=== PATIENT | female | born 1935 | race Caucasian/White ===

== ENCOUNTER 2017-05-02 08:36 | Outpatient (CLI) | payer MEDICARE ==
--- NOTE | 2017-05-02 20:01 | HP ---
DATE OF SERVICE: 05/02/2017 HISTORY OF PRESENT ILLNESS: Ms. Elida Gomez is a very pleasant 82-year-old accompanied by her daughter, who presents to the Wound Center for evaluation of a wound of the right lower leg subsequen t to a fall on 04/14/2017. The patient's daughter states that Ms. Gomez was seen in the Emergency Department the following day and at this time the laceration of the right lower leg was cleaned in [facility] edges approximated with Steri-Strips. Approximately 2 weeks later, the patient was seen in the [facility] Department again and at this time placed on a course of clindamycin p.o. for 10 days. At the time of the patient's visit to the Emergency Department on 04/27/2017, the patient was referred to [facility] for further evaluation and treatment. The patient's daughter has been dressing the wo und of the right lower leg wound with Telfa and gauze secured with tape every other day. The patient 's daughter states that she herself discontinued the Steri-Strips, which had been utilized to approxi mate the wound edges at the time of the patient's initial visit to the Emergency Department on 2016. PAST MEDICAL HISTORY: 1. History of hypertension. 2. Degenerative joint disease. 3. History of gastroesophageal reflux disease. PAST SURGICAL HISTORY: 1. Appendectomy. 2. Hysterectomy. 3. Tonsillectomy. 4. Abdominoplasty. 5. Removal of benign ovarian tumors. MEDICATIONS: 1. Metoprolol. 2. Trazodone. 3. Famotidine. 4. Simvastatin. 5. Amlodipine. 6. Losartan. 7. Aspirin 325 mg. 8. Aleve. 9. Vitamin D3. 10. Azo-Cranberry. ALLERGIES: PENICILLIN. SOCIAL HISTORY: Negative for tobacco use. The patient admits to only the rare consumption of alcoho l. FAMILY HISTORY: Significant for diabetes mellitus. The patient states that she has one daughter, wh o was diagnosed with diabetes mellitus. PHYSICAL EXAMINATION: VITAL SIGNS: Temperature 97.6, pulse 71, respirations 18, blood pressure 146/83. GENERAL: An 82-year-old female lying on table in examination room in no acute distress. HEENT: Normocephalic, atraumatic. NECK: No nuchal rigidity. CHEST: Clear to auscultation. CARDIAC: Regular rate and rhythm. ABDOMEN: Soft. EXTREMITIES: A wound of the right lower leg is present, which measures approximately 6.0 x 3.0 cm. Granulation tissue is present within the wound margins. Necrotic and nonviable tissue present within the wound margins was debrided with an excisional full-thickness debridement with the use of a curet te. No purulent drainage is associated with the wound. Erythema of the right lower leg is present. No maceration of the skin of the periwound is noted. A dorsalis pedis pulse is palpable on the righ t. Edema of the right foot and lower leg is present on exam today. NEUROLOGIC: Grossly nonfocal. ASSESSMENT AND PLAN: 1. Laceration of right lower leg as described above. Healing of the wound appears to be complicated by venous hypertension. Silverlon, Webril, and the 3M Coban two-layer compression system will be ap plied to the right lower leg wound today. The patient has been reminded to continue clindamycin as p reviously prescribed. I will see Ms. Gomez again in 1 week. 2. History of hypertension. 3. Degenerative joint disease. 4. History of gastroesophageal reflux disease.
[2017-05-02] MEDS ORDERED: Sodium Chloride 0.9% 15 ML NEB ONE (21:14)
[2017-05-02] MEDS ORDERED: Lidocaine 2% Jelly 5 ML TUBE ONE (21:14)
== END 2017-05-02 08:37 | disposition home or self-care (01) ==
LOC: WCC 08:36
PROVIDERS: ATTEND Family Medicine
DX: S81.811D Laceration without foreign body, right lower leg, subsequent encounter (principal); I10 Essential (primary) hypertension; M19.90 Unspecified osteoarthritis, unspecified site; K21.9 Gastro-esophageal reflux disease without esophagitis
CPT/HCPCS: 11042; 97139; G0463; 99204; A4218

== ENCOUNTER 2017-05-09 07:59 | Outpatient (CLI) | payer MEDICARE ==
--- NOTE | 2017-05-09 09:18 | PRG ---
DATE OF SERVICE: 05/09/2017 HISTORY: Ms. Elida Gomez is a very pleasant 82-year-old accompanied by her daughter, who prese nts to the Wound Center for evaluation of a wound of the right lower leg subsequent to a fall on 03/21. The patient's daughter previously stated that Ms. Gomez was seen in the Emergency Departme nt the following day and at this time the laceration of the right lower leg was cleaned in the edges approximated with Steri-Strips. Approximately 2 weeks later, [facility] and at this time placed on a course of p.o. clindamycin for 10 days. At the time of the patient's visit to the Emergency Department on 04/27/2017, the patient was referred to the Wound Center for further evaluation and treatment. Prior to being seen in the Wound Center, the patient's daughter had been dressing the wound of the right lower leg, which Telfa and gauze secured with tape every other day. The patient's daughter stated that she herself discontinued the Steri-Strips, which had been utilized to approximate the wound edges. At the time of the patient's initial visit to the Emergency Department on 04/15/2017, after being seen in the Wound Center, Silverlon, Webril, and 3M Coban 2 layer compression system were applied to the right lower leg wound. PHYSICAL EXAMINATION: VITAL SIGNS: Temperature 97.6, pulse 75, respirations 16, blood pressure 143/70. EXTREMITIES: A wound of the right lower leg is present, which measures approximately 5.5 x 3.0 cm. The dimensions of the wound at the time of the patient's last visit were approximately 6.0 x 3.0 cm. Granulation tissue is present within the wound margins. Necrotic and nonviable tissue present withi n the wound margins was debrided with an excisional full-thickness debridement with the use of a cure tte and scissors. No purulent drainage is associated with the wound. No cellulitis of the right low er leg is present. No maceration of the skin of the periwound is noted. A dorsalis pedis pulse is e asily palpable on the right. Less edema of the right foot and lower leg is present on exam today, th en was present at the time of the patient's last visit. ASSESSMENT AND PLAN: 1. Laceration of right lower leg as described above. The healing of the wound appears to be complic ated by venous hypertension. Silverlon, Webril, and the 3M Coban two-layer compression system will b e applied to the right lower leg wound again today. The patient is to receive weekly dressing change s of Silverlon, Webril, and 3M Coban 2 layer compression system here in the Wound Center for the next 2 weeks. I will see Ms. Gomez again in 3 weeks. 2. History of hypertension. 3. Degenerative joint disease. 4. History of gastroesophageal reflux disease.
[2017-05-09] MEDS ORDERED: Lidocaine 2% Jelly 5 ML TUBE ONE (21:26)
[2017-05-09] MEDS ORDERED: Sodium Chloride 0.9% 15 ML NEB ONE (21:26)
== END 2017-05-09 08:00 | disposition home or self-care (01) ==
LOC: WCC 07:59
PROVIDERS: ATTEND Family Medicine
DX: S81.801D Unspecified open wound, right lower leg, subsequent encounter (principal); M19.90 Unspecified osteoarthritis, unspecified site; Z82.49 Family history of ischemic heart disease and other diseases of the circulatory system; Z87.19 Personal history of other diseases of the digestive system
CPT/HCPCS: 36415; 80061; A4218

== ENCOUNTER 2017-05-16 09:09 | Outpatient (CLI) | payer MEDICARE ==
[2017-05-16] MEDS ORDERED: Sodium Chloride 0.9% 15 ML NEB ONE (13:37)
== END 2017-05-16 09:10 | disposition home or self-care (01) ==
LOC: WCC 09:09
PROVIDERS: ATTEND Family Medicine
DX: S81.811D Laceration without foreign body, right lower leg, subsequent encounter (principal); I87.391 Chronic venous hypertension (idiopathic) with other complications of right lower extremity
CPT/HCPCS: 29581; A4218

== ENCOUNTER 2017-05-23 07:36 | Outpatient (CLI) | payer MEDICARE ==
[2017-05-23] MEDS ORDERED: Sodium Chloride 0.9% 15 ML NEB ONE (09:00)
== END 2017-05-23 07:37 | disposition home or self-care (01) ==
LOC: WCC 07:36
PROVIDERS: ATTEND Family Medicine
DX: I87.311 Chronic venous hypertension (idiopathic) with ulcer of right lower extremity (principal); L97.919 Non-pressure chronic ulcer of unspecified part of right lower leg with unspecified severity
CPT/HCPCS: 29581; A4218

== ENCOUNTER → 2017-05-30 | Outpatient (CLI) | payer MEDICARE ==
[~2017-05-30] MED LIST: Lidocaine 2% Jelly 5 ML TUBE ONE
--- NOTE | 2017-05-30 09:58 | PRG ---
DATE OF SERVICE: 05/30/2017 HISTORY: Ms. Elida Gomez is a very pleasant 82-year-old, who presents to the Wound Center for e valuation of a wound of the right lower leg subsequent to a fall on 04/14/2017. The patient's daught er previously stated that Ms. Gomez was seen in the Emergency Department the following day and at t his time the laceration of the right lower leg was cleaned and the edges approximated with Steri-Stri ps. Approximately 2 weeks later, the patient was seen in the Emergency Department again and at this time placed on a course of p.o. clindamycin for 10 days. At the time of the patient's visit to the E mergency Department on 04/27/2017, the patient was referred to the Wound Center for further evaluatio n and treatment. Prior to being seen in the Wound Center, the patient's daughter had been dressing t he wound of the right lower leg with Telfa and gauze secured with tape every other day. The patient' s daughter stated that she herself discontinued the Steri-Strips, which had been utilized to approxim ate the wound edges at the time of the patient's initial visit to the Emergency Department on 017. After being seen in the Wound Center, Silverlon, Webril, and 3M Coban 2 layer compression syste m were applied to the right lower leg wound. PHYSICAL EXAMINATION: VITAL SIGNS: Temperature 98.1, pulse 61, respirations 16, and blood pressure 148/63. EXTREMITIES: A wound of the right lower leg is present, which measures approximately 5.2 x 2.0 cm. The dimensions of the wound at the time of the patient's visit on 05/09/2017 were approximately 5.5 x 3.0 cm. Granulation tissue is present within the wound margins. Necrotic and nonviable tissue pres ent within the wound margins was debrided with an excisional full-thickness debridement with the use of a curet and scissors. No purulent drainage is associated with the wound. No cellulitis of the ri ght lower leg is present. No maceration of the skin of the periwound is noted. A dorsalis pedis pul se is easily palpable on the right. No significant edema of the right foot or lower leg is present o n exam today. ASSESSMENT AND PLAN: 1. Laceration of right lower leg as described above. The healing of the wound appears to be complic ated by venous hypertension. Silverlon, Webril, and the 3M Coban two-layer compression system will b e applied to the right lower leg wound again today. I will see Ms. Gomez again in 1 week. 2. History of hypertension. 3. Degenerative joint disease. 4. History of gastroesophageal reflux disease.
== END ==
LOC: WCC 07:33
PROVIDERS: ATTEND Family Medicine
DX: S81.811D Laceration without foreign body, right lower leg, subsequent encounter (principal); I87.391 Chronic venous hypertension (idiopathic) with other complications of right lower extremity; I10 Essential (primary) hypertension; M19.90 Unspecified osteoarthritis, unspecified site; Z87.19 Personal history of other diseases of the digestive system
CPT/HCPCS: 11042

== ENCOUNTER 2017-06-06 09:42 | Outpatient (CLI) | payer MEDICARE ==
--- NOTE | 2017-06-06 12:33 | PRG ---
DATE OF SERVICE: 06/06/2017 HISTORY: Ms. Elida Gomez is a very pleasant 82-year-old, who presents to the Wound Center for e valuation of a wound of the right lower leg subsequent to a fall on 04/14/2017. The patient's daught er previously stated that Ms. Gomez was seen in the Emergency Department the following day, and at this time, the laceration of the right lower leg was cleaned and the edges approximated with Steri-St rips. Approximately 2 weeks later, the patient was seen in the Emergency Department again, and at th is time placed on a course of p.o. clindamycin for 10 days. At the time of the patient's visit to [facility] Emergency Department on 04/27/2017, the patient was referred to the Wound Center for further evalua tion and treatment. Prior to being seen in the Wound Center, the patient's daughter had been dressin g the wound of the right lower leg with Telfa and gauze secured with tape every other day. The patie nt's daughter stated that she herself discontinued the Steri-Strips, which had been utilized to appro ximate the wound edges at the time of the patient's initial visit to the Emergency Department on 03/21. After being seen in the Wound Center, Silverlon, Webril, and the 3M Coban 2-layer compressio n system were applied to the right lower leg wound. The patient has been receiving these dressing ch anges on a weekly basis. PHYSICAL EXAMINATION: VITAL SIGNS: Temperature 97.5, pulse 64, respirations 20, blood pressure 196/82. EXTREMITIES: A wound of the right lower leg is present, which measures approximately 2.3 x 2.3 cm. The dimensions of the wound at the time of the patient's visit on 05/30/2017 were approximately 5.2 x 2.0 cm. Granulation tissue is present within the wound margins. Necrotic and nonviable tissue pres ent within the wound margins was debrided with an excisional full-thickness debridement with the use of a curette and scissors. No purulent drainage is associated with the wound. No cellulitis of the right lower leg is present. No maceration of the skin of the periwound is noted. A dorsalis pedis p ulse is easily palpable on the right. No significant edema of the right foot or lower leg is present on exam today. ASSESSMENT AND PLAN: 1. Laceration of right lower leg as described above. The healing of the wound appears to be complic ated by chronic venous hypertension. Silverlon, Webril, and the 3M Coban 2-layer compression system will be applied to the right lower leg wound again today. I will see Ms. Gomez again in 1 week. 2. History of hypertension. 3. Degenerative joint disease. 4. History of gastroesophageal reflux disease.
== END 2017-06-06 09:43 | disposition home or self-care (01) ==
LOC: WCC 09:42
PROVIDERS: ATTEND Family Medicine
DX: S81.811D Laceration without foreign body, right lower leg, subsequent encounter (principal); M19.90 Unspecified osteoarthritis, unspecified site; I10 Essential (primary) hypertension; K21.9 Gastro-esophageal reflux disease without esophagitis

== ENCOUNTER 2017-06-13 10:35 | Outpatient (CLI) | payer MEDICARE ==
--- NOTE | 2017-06-13 13:17 | PRG ---
DATE OF SERVICE: 06/13/2017 HISTORY: Ms. Elida Gomez is a very pleasant 82-year-old, who presents to the Wound Center for e valuation of a wound of the right lower leg subsequent to a fall on 04/14/2017. The patient's daught er previously stated that Ms. Gomez was seen in the Emergency Department the following day, and at this time, the laceration of the right lower leg was cleaned and the edges approximated with Steri-St rips. Approximately 2 weeks later, the patient was seen in the Emergency Department again, and at th is time, placed on a course of p.o. clindamycin for 10 days. At the time of the patient's visit to [facility] Emergency Department on 04/27/2017, the patient was referred to the Wound Center for further evalu ation and treatment. Prior to being seen in the Wound Center, the patient's daughter had been dressi ng the wound of the right lower leg with Telfa and gauze secured with tape every other day. The shamar ent's daughter stated that she herself discontinued the Steri-Strips, which had been utilized to appr oximate the wound edges at the time of the patient's initial visit to the Emergency Department on . After being seen in the Wound Center, Silverlon, Webril, and the 3M Coban 2-layer compressi on system were applied to the right lower leg wound. The patient has been receiving these dressing c hanges on a weekly basis. PHYSICAL EXAMINATION: VITAL SIGNS: Temperature 97.7, pulse 63, respirations 19, blood pressure 142/65. EXTREMITIES: A wound of the right lower leg is present, which measures approximately 1.5 x 0.5 cm. The dimensions of the wound, at the time of the patient's visit on 06/06/2017, were approximately 2.3 x 2.3 cm. Granulation tissue is present within the wound margins. Necrotic and nonviable tissue pr esent within the wound margins was debrided with an excisional full-thickness debridement with the us e of a curette and scissors. No purulent drainage is associated with the wound. No cellulitis of th e right lower leg is present. No maceration of the skin of the periwound is noted. No significant e ailyn of the right foot or lower leg is present on exam today. ASSESSMENT AND PLAN: 1. Laceration of right lower leg as described above. The healing of the wound appears to be complic ated by chronic venous hypertension. Silverlon, Webril, and the 3M Coban 2-layer compression system will be applied to the right lower leg wound again today. I will see Ms. Gomez again in 1 week. 2. History of hypertension. 3. Degenerative joint disease. 4. History of gastroesophageal reflux disease.
[2017-06-14] MEDS ORDERED: Sodium Chloride 0.9% 15 ML NEB ONE (15:44)
[2017-06-14] MEDS ORDERED: Lidocaine 2% Jelly 5 ML TUBE ONE (15:44)
== END 2017-06-13 10:36 | disposition home or self-care (01) ==
LOC: WCC 10:35
PROVIDERS: ATTEND Family Medicine
DX: S81.811D Laceration without foreign body, right lower leg, subsequent encounter (principal); I87.301 Chronic venous hypertension (idiopathic) without complications of right lower extremity; M19.90 Unspecified osteoarthritis, unspecified site; Z87.19 Personal history of other diseases of the digestive system
CPT/HCPCS: 11042

== ENCOUNTER 2017-06-20 09:48 | Outpatient (CLI) | payer MEDICARE ==
--- NOTE | 2017-06-20 11:45 | PRG ---
DATE OF SERVICE: 06/20/2017 HISTORY: Ms. Elida Gomez is a very pleasant 82-year-old who presents to the Wound Center for evaluation of a wound of the right lower leg subsequent to a fall on 04/14/2017. The patient's daughter previously stated that Ms. Gomez was seen in the Emergency Department the following day, and at this time , the laceration of the right lower leg was cleaned and the edges approximated with Steri-Strips. Approximately 2 weeks later, the patient was seen in the Emergency Department again and, at this time, placed on a course of p.o. clindamycin for 10 days. At the time of the patient's visit to the Emergency Department on 04/27/2017, the patient was referred to the Wound Center for further evaluation and treatment. Prior to being seen in the Wound Center, the patient's daughter had been dressing the wound of the right lower leg with Telfa and gauze secured with tape every other day. The patient's daughter stated that she herself discontinued the Steri-Strips, which had been utilized to approximate the wound edges at the time of the patient's initial visit to the Emergency Department on 04/15/2017. After being seen in the Wound Center, Silverlon, Webril, and the 3M Coban 2-layer compression system were applied to the right lower leg wound. The patient has been receiving these dressing changes on a weekly basis. PHYSICAL EXAMINATION: VITAL SIGNS: Temperature 97.5, pulse 57, respirations 19, blood pressure 165/ 70. EXTREMITIES: A wound of the right lower leg is present which measures approximately 1.2 x 0.9 cm. The dimensions of the wound at the time of the patient's visit on 06/13/2017 were approximately 1.5 x 0.5 cm. Granulation tissue is present within the wound margins. Necrotic and nonviable tissue present within the wound margins was debrided with an excisional full-thickness debridement with the use of a curet. No purulent drainage is associated with the wound. No cellulitis of the right lower leg is present. No maceration of the skin of the periwound is noted. A dorsalis pedis pulse is easily palpable on the right. No significant edema of the right foot or lower leg is present on exam today. ASSESSMENT AND PLAN: 1. Laceration of right lower leg as described above. The healing of the wound appears to be complicated by chronic venous hypertension. Silverlon, Webril, and the 3M Coban two-layer compression system will be applied to the right lower leg wound today. The wound has almost healed completely, and Ms. Gomez will be discharged from clinic today with follow up on a p.r.n. basis. The patient has been asked to discontinue her compression wrap in 1 week to 10 days. At this time, the patient is to perform dressing changes of Silverlon on a daily basis or alternatively three times per week after cleansing and irrigation until the wound has healed completely. The patient understands and is in agreement with the preceding treatment plan. 2. History of hypertension. 3. Degenerative joint disease. 4. History of gastroesophageal reflux disease. MTDD
[2017-06-24] MEDS ORDERED: Sodium Chloride 0.9% 15 ML NEB ONE (15:17)
[2017-06-24] MEDS ORDERED: Lidocaine 2% Jelly 5 ML TUBE ONE (15:17)
== END 2017-06-20 09:49 | disposition home or self-care (01) ==
LOC: WCC 09:48
PROVIDERS: ATTEND Family Medicine
DX: S81.811D Laceration without foreign body, right lower leg, subsequent encounter (principal); I10 Essential (primary) hypertension; M19.90 Unspecified osteoarthritis, unspecified site; K21.9 Gastro-esophageal reflux disease without esophagitis
CPT/HCPCS: 11042

== ENCOUNTER 2021-01-22 17:04 | Inpatient (IN) | payer MEDICARE ==
[2021-01-23 00:17] VITALS: BMI 26.4
[2021-01-23] MEDS ORDERED: Senokot S 8.6-50 MG TAB PO PRN (00:18)
[2021-01-23] MEDS ORDERED: Ondansetron PF 4 MG/2 ML Vial IVP PRN (00:18)
[2021-01-23] MEDS ORDERED: Bisacodyl 5 MG TAB PO PRN (00:18)
[2021-01-23] MEDS ORDERED: hydrALAZINE 20 MG/ML VIAL SLOW IVP PRN (00:29)
[2021-01-23] MEDS ORDERED: Docusate 100 MG CAP PO SCH (00:53)
[2021-01-23] MEDS ORDERED: cefTRIAXone\\ROCEPHIN 1 GM in Sodium Chloride 0.9% 100 ML IVPB SCH (01:00)
[2021-01-23] MEDS: Sodium Chloride 0.9% 1,000 ML IV SCH (01:02)
[2021-01-23 04:28] LABS: #Eosinphils 0.1 thou/uL (0.0-0.7); #Lymphocytes 0.9 thou/uL (1.20-3.40); #Monocytes 0.4 thou/uL (0.11-0.59); #Neutrophils 3.3 thou/uL (1.40-6.50); %Basophils 0.2 % (0.0-1.0); %Eosinophils 1.7 % (0.0-10.0); %Lymphocytes 18.4 % (21.0-51.0); %Monocytes 9.4 % (0.0-10.0); %Neutrophils 70.3 % (42.0-75.0); Mean Corpuscular HGB CONC 33.6 g/dL (32.0-36.0); Mean Corpuscular Hemoglobin 32.3 pg (27.0-31.0); Mean Corpuscular Volume 96.2 fL (78.0-98.0); Mean Platelet Volume 7.9 fL (7.4-10.4); Platelet Count 130 thou/uL (130-400); RBC Distribution Width 12.2 % (11.5-14.5); Red Blood Cell (RBC) Count 3.71 mill/uL (4.20-5.40); White Blood Cell (WBC) Count 4.7 thou/uL (4.8-10.8)
[2021-01-23 04:49] LABS: ALT (SGPT) 11 U/L (8-55); AST (SGOT) 14 U/L (5-34); Alkaline Phosphatase 60 U/L (40-110); Anion Gap 13 mmol/L (10-20); BUN (Urea Nitrogen) 20 mg/dL (9.8-20.1); Bilirubin, Total 0.6 mg/dL (0.2-1.2); Calc. Creatinine Clearance 44 mL/min (70-130); Calcium 9.9 mg/dL (7.8-10.44); Carbon Dioxide 24 mmol/L (23-31); Chloride 109 mmol/L (98-107); Globulin 2.2 g/dL (2.4-3.5); Glucose 100 mg/dL (83-110); Potassium 4.2 mmol/L (3.5-5.1); Protein, Total 6.2 g/dL (5.8-8.1); Sodium 142 mmol/L (136-145)
[2021-01-23 04:53] LABS: Troponin I 0.027 ng/mL (< 0.028)
[2021-01-23] MEDS: Simvastatin 10 MG TAB PO SCH (08:16)
[2021-01-23] MEDS: Losartan 25 MG TAB PO SCH (08:16)
[2021-01-23] MEDS: Docusate 100 MG CAP PO SCH ×2 (08:16→19:59)
[2021-01-23] MEDS: Metoprolol Tartrate 25 MG TAB PO SCH ×2 (08:16→20:00)
[2021-01-23] MEDS: Loratadine 10 MG TAB PO SCH (08:16)
[2021-01-23 08:39] LABS: Hemoglobin A1c 4.9 % (4.0-6.0)
[2021-01-23] MEDS: cefTRIAXone\\ROCEPHIN 1 GM in Sodium Chloride 0.9% 100 ML IVPB SCH (16:59)
[2021-01-23] MEDS: Aspirin 325 mg Enteric Coated Tablet PO SCH (19:59)
[2021-01-23] MEDS: traZODone HCl 150 MG TAB PO SCH (19:59)
[2021-01-24] MEDS: Sodium Chloride 0.9% 1,000 ML IV SCH (06:27)
[2021-01-24] MEDS: Acetaminophen 325 MG TAB PO PRN ×2 (08:14→15:10)
[2021-01-24] MEDS: Metoprolol Tartrate 25 MG TAB PO SCH ×2 (08:15→20:17)
[2021-01-24] MEDS: Loratadine 10 MG TAB PO SCH (08:15)
[2021-01-24] MEDS: Simvastatin 10 MG TAB PO SCH (08:15)
[2021-01-24] MEDS: Losartan 25 MG TAB PO SCH (08:15)
[2021-01-24] MEDS: Docusate 100 MG CAP PO SCH ×2 (08:15→20:17)
[2021-01-24] MEDS: cefTRIAXone\\ROCEPHIN 1 GM in Sodium Chloride 0.9% 100 ML IVPB SCH (16:09)
[2021-01-24] MEDS: Aspirin 325 mg Enteric Coated Tablet PO SCH (20:18)
[2021-01-24] MEDS: traZODone HCl 150 MG TAB PO SCH (20:18)
[2021-01-24] MEDS: Melatonin 3 MG TAB PO PRN (23:02)
[2021-01-25] MEDS: Sodium Chloride 0.9% 1,000 ML IV SCH (06:08)
[2021-01-25] MEDS: Losartan 25 MG TAB PO SCH (09:14)
[2021-01-25] MEDS: Loratadine 10 MG TAB PO SCH (09:14)
[2021-01-25] MEDS: Docusate 100 MG CAP PO SCH ×2 (09:15→21:58)
[2021-01-25] MEDS: Simvastatin 10 MG TAB PO SCH (09:15)
[2021-01-25] MEDS: Metoprolol Tartrate 25 MG TAB PO SCH ×2 (09:15→21:58)
[2021-01-25] MEDS ORDERED: traMADol HCl 50 MG TAB PO PRN (12:24)
[2021-01-25] MEDS ORDERED: Naproxen 500 MG TAB PO SCH (14:00)
[2021-01-25] MEDS: cefTRIAXone\\ROCEPHIN 1 GM in Sodium Chloride 0.9% 100 ML IVPB SCH (18:29)
[2021-01-25] MEDS: traZODone HCl 150 MG TAB PO SCH (21:58)
[2021-01-25] MEDS: Melatonin 3 MG TAB PO PRN (21:58)
[2021-01-25] MEDS: Naproxen 500 MG TAB PO SCH (21:58)
[2021-01-26 07:26] LABS: #Eosinphils 0.2 thou/uL (0.0-0.7); #Monocytes 0.6 thou/uL (0.11-0.59); #Neutrophils 4.1 thou/uL (1.40-6.50); %Eosinophils 3.4 % (0.0-10.0); %Lymphocytes 16.4 % (21.0-51.0); %Monocytes 9.6 % (0.0-10.0); %Neutrophils 70.6 % (42.0-75.0); Hemoglobin 12.3 g/dL (12.0-16.0); Mean Corpuscular HGB CONC 33.4 g/dL (32.0-36.0); Mean Corpuscular Hemoglobin 32.8 pg (27.0-31.0); Mean Corpuscular Volume 98.1 fL (78.0-98.0); Mean Platelet Volume 8.7 fL (7.4-10.4); Platelet Count 136 thou/uL (130-400); RBC Distribution Width 12.2 % (11.5-14.5); Red Blood Cell (RBC) Count 3.77 mill/uL (4.20-5.40); White Blood Cell (WBC) Count 5.8 thou/uL (4.8-10.8)
[2021-01-26 07:37] LABS: Anion Gap 11 mmol/L (10-20); BUN (Urea Nitrogen) 28 mg/dL (9.8-20.1); Calc. Creatinine Clearance 34 mL/min (70-130); Calcium 9.7 mg/dL (7.8-10.44); Carbon Dioxide 26 mmol/L (23-31); Chloride 106 mmol/L (98-107); Glucose 105 mg/dL (83-110); Potassium 3.9 mmol/L (3.5-5.1); Sodium 139 mmol/L (136-145)
[2021-01-26] MEDS: Sodium Chloride 0.9% 1,000 ML IV SCH ×2 (09:21→19:41)
[2021-01-26] MEDS: Aspirin 81 mg Enteric Coated Tablet PO SCH (09:41)
[2021-01-26] MEDS: Losartan 25 MG TAB PO SCH (09:42)
[2021-01-26] MEDS: Naproxen 500 MG TAB PO SCH ×2 (09:42→22:14)
[2021-01-26] MEDS: Metoprolol Tartrate 25 MG TAB PO SCH ×2 (09:42→22:14)
[2021-01-26] MEDS: Docusate 100 MG CAP PO SCH ×2 (09:43→22:14)
[2021-01-26] MEDS: Loratadine 10 MG TAB PO SCH (09:43)
[2021-01-26] MEDS ORDERED: Bisacodyl 10 MG SUPP PR SCH (17:15)
[2021-01-26] MEDS ORDERED: Simvastatin 10 MG TAB PO SCH (21:00)
[2021-01-26] MEDS: traZODone HCl 150 MG TAB PO SCH (22:13)
[2021-01-26] MEDS: Melatonin 3 MG TAB PO PRN (22:14)
[2021-01-27] MEDS: Aspirin 81 mg Enteric Coated Tablet PO SCH (09:38)
[2021-01-27] MEDS: Naproxen 500 MG TAB PO SCH (09:38)
[2021-01-27] MEDS: Losartan 25 MG TAB PO SCH (09:39)
[2021-01-27] MEDS: Metoprolol Tartrate 25 MG TAB PO SCH (09:41)
[2021-01-27] MEDS: Loratadine 10 MG TAB PO SCH (09:41)
[2021-01-27] MEDS: Docusate 100 MG CAP PO SCH (09:41)
[2021-01-27 14:59] VITALS: BP 129/84; TEMP 96
== END 2021-01-27 15:05 | DRG 689 ==
LOC: 2NO 17:04 → SURG A 01-24 16:48 → OBSVTOIN 01-26 15:19
PROVIDERS: ADMIT Family Medicine; ATTEND Internal Medicine
DX: N39.0 Urinary tract infection, site not specified (principal); G93.41 Metabolic encephalopathy; N17.9 Acute kidney failure, unspecified; I12.9 Hypertensive chronic kidney disease with stage 1 through stage 4 chronic kidney disease, or unspecified chronic kidney disease; E78.5 Hyperlipidemia, unspecified; G89.29 Other chronic pain; R73.9 Hyperglycemia, unspecified; K59.00 Constipation, unspecified; R07.89 Other chest pain; B96.20 Unspecified Escherichia coli [E. coli] as the cause of diseases classified elsewhere; N18.30 Chronic kidney disease, stage 3 unspecified; F31.9 Bipolar disorder, unspecified; F03.90 Unspecified dementia, unspecified severity, without behavioral disturbance, psychotic disturbance, mood disturbance, and anxiety; Z88.0 Allergy status to penicillin; Z79.82 Long term (current) use of aspirin; Z79.899 Other long term (current) drug therapy
CPT/HCPCS: 36415; 74018; 80048; 80053; 83036; 84484; 85025; 93306; 96374; 96375; 96376; G0378; J0360; J0696; J3490; J7050